=== PATIENT | female | born 1950 | race Caucasian/White ===

== ENCOUNTER 2018-08-08 15:25 | Emergency (ER) | payer MEDICARE, OTHER ==
--- OUTSIDE RECORDS SUMMARY | 2018-08-08 17:03 | XMS REPORT | Continuity of Care Document ---
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 Mabel Gallo MD Primary Care Physician Unavailable Payers Type Date Identification Numbers Payment Provider Subscriber Policy Number: [id number] Medicare Charley Sims PayID: [id number] [address] [place] [address] Policy Number: [id number] Lifetime Benefits Solutio Charley Sims PayID: [facility] [address] [address] [place] [address] Expires: 2016 Policy Number: [id number] [employer] Charley Sims PayID: [id number] [address] [place] [address] Advance Directives Description No Information Available Problems Description No Information Family History Date Family Member(s) Problem(s) Comments Father due to Heart Attack () Father due to Stroke () Mother due to Heart Attack () Mother Diabetes Mother due to Stroke () Social History Type Date Description Comments Sex Female Cigarette Use Quit 31 Years Ago ETOH Use Never used alcohol Recreational Drug Use Never Used Drugs Allergies, Adverse Reactions, Alerts Date Description Reaction Status Severity Comments 02/02/2010 Sulfa (Sulfonamide Antibiotics) Active Medications Medication Date Status Form Strength Qnty SIG Indications Ordering Provider Hydrocodone 07/06 Active Tablets 5-325mg 20tab one to two Ohara, Bitartrate/Acetami /2018 s tab every 6 Silver, nophen hours by M.D. mouth as needed Acetaminophen 0000 Active Tablets 500mg 2 tab every Unknown Extra Strength /0000 6 hours by mouth as needed - 10 days Hydroxychloroquine 0000 Active Tablets 200mg 1 by mouth Unknown Sulfate /0000 every day Omeprazole 00 Active Capsules 40mg 1 by mouth Unknown /0000 DR every day Lyrica 00 Active Capsules 300mg bid Unknown Simvastatin Active Tablets 10mg 1 by mouth Unknown every day Eliquis Active Tablets 5mg 1 tab by Unknown / mouth twice a day Spiriva Respimat Active Aerosol 1.25mcg/A take 2 ct puffs once daily. Duloxetine HCL Active Caps DR 30mg also takes Part 60mg tab Linzess Active Capsules 145mcg every day Unknown Bupropion HCL Active Tablets 75mg one tab Unknown daily for a month take in the morning Cyclobenzaprine Active Tablets 10mg 1 tab by Unknown / mouth three times a day as needed Folic Acid Active Tablets 1 by mouth every day Iron Active Tablets 240(27Fe) Unknown mg Augmentin 05/06 Hx Tablets 875-125mg 14tab twice a day Ohara, s 1 week Silver - M.D. 05/24 Ipratropium 03/10 Hx Solution 0.03% QS 2 sprays Ohara, each side Silver, - nostril M.D. 05/05 everyday months Zantac 06/09 Hx Tablets 150mg 30tab 1 By Mouth s Every Day Silver, - MDD 1 M.D. 05/05 Acetaminophen 03/01 Hx Tablets 500mg 14tab Every 6 Unknown Extra Strength /2014 s Hours as - Needed prn 05/05 Pain Or /2017 Temp. Over 100.4 Amitriptyline HCL 03/01 Hx Tablets 50mg 20tab AT Bedtime s - 05/05 Amoxicillin/Clavul 03/01 Hx Tablets 875-125mg 20tab 2 Times A Unknown anate Potassium /2014 s Day - 05/06 Astelin 03/01 Hx Solution 137mcg/Sp 14uni 2 Times A Unknown /2014 ray ts Day - 05/05 Citalopram 03/01 Hx Tablets 20mg 14tab Once Daily Unknown Hydrobromide s - 05/05 Ferrous Sulfate 03/01 Hx Tablets 325(65Fe) 20tab 2 Times A Unknown /2014 mg s Day - 05/05 Heparin Sodium 03/01 Hx Solution 5000Unit/ 20uni 2 Times A Unknown (Porcine) /2014 ML ts Day - 05/06 Hydroxychloroquine 03/01 Hx Tablets 200mg 14tab 2 Times A Unknown Sulfate /2014 s Day With - Meals 05/05 Lactinex 03/01 Hx Tablets 14tab 2 Times A Unknown Repack /2014 s Day - 05/06 Loratadine 03/01 Hx Tablets 10mg 14tab Once Daily Unknown s - 05/05 Pantoprazole 03/01 Hx Tablets 40mg 14tab 2 Times A Unknown Sodium /2014 DR gonzalez Day - 05/06 Pravastatin Sodium 03/01 Hx Tablets 10mg 14tab Qday@1700 s - 05/05 Lyrica 03/01 Hx Capsules 150mg 14cap 3 Times Unknown s Daily - 05/05 Sertraline HCL 03/01 Hx Tablets 25mg 14tab Once Daily s - 05/05 Sucralfate 03/01 Hx Tablets 1gm 14tab 0700,1100,1 s 500 - 05/05 Sucralfate 03/01 Hx Tablets 1gm 14tab 1900,2100 s - 05/06 Spiriva Handihaler 03/01 Hx Capsules 18mcg 30cap Once Daily s - 05/05 Ondansetron HCL 02/17 Hx Tablets 4mg 12tab 3 Times A Unknown s Day as - Needed prn 05/05 Nausea Calcium Citrate + 00 Hx Tablets 315-200mg Once Daily Unknown D /0000 -Unit - 05/05 Polyethylene 00/00 Hx Powder 3350NF 12uni Once Daily Unknown Glycol 3350 /0000 ts - 05/05 Acetaminophen 00/00 Hx Tablets 500mg Every 4 To Unknown Extra Strength /0000 6 HRS prn - Pain / 05/05 Fever Citalopram 0000 Hx Tablets 20mg Once Daily Unknown Hydrobromide /0000 - 05/05 Lovenox 00/00 Hx Solution 30mg/0.3M Once Daily Unknown /0000 L For - Anticoagula 05/05 nt Hydroxychloroquine 0000 Hx Tablets 200mg 2 Times A Unknown Sulfate / Day - 05/05 Ibuprofen 00/00 Hx Tablets 800mg 4 Times A Unknown /0000 Day prn - Pain 05/05 Omeprazole Hx Capsules 20mg 2 Times A Unknown /0000 DR Day - 05/05 Oxecta 00 Hx Taba 5mg Every 4 To Unknown /0000 6 HRS prn - Pain 05/06 Lyrica Hx Capsules 150mg 3 Times Unknown /0000 Daily For - Fibromyalgi 05/05 Simvastatin Hx Tablets 10mg Once Daily Unknown /0000 - 05/05 Eliquis Hx Tablets 5mg 1 tab by Unknown /0000 mouth twice - a day 05/05 Spiriva Respimat Hx Aerosol 1.25mcg/A take 2 Unknown /0000 ct puffs once - daily. 05/[address] Dulox[address] HCL Hx Caps [address] 30mg Unknown /0000 Part - 05/05 Duloxetine HCL Hx Caps DR 60mg take one Unknown /0000 Part capsule by - mouth 05/05 Ipratropium Hx Solution 0.03% 2 sprays Ohara, [place] /0000 each side Silver, - nostril M.D. 06/28 everyday months Azelastine HCL Hx Solution 137mcg/Sp 2 sprays Unknown (Nasal) /0000 ray each side - daily 06/28 Pravastatin Sodium Hx Tablets 1 by mouth Unknown /0000 every at - bedtime 06/28 Sertraline HCL Hx Tablets 25mg once a day Unknown /0000 - 06/28 Calcium Citrate + Hx Tablets 315-200mg Unknown D /0000 -Unit - 06/28 Proair HFA Hx Aerosol 108(90Bas 2puffs four Unknown /0000 e) times a day - mcg/Act as needed 06/28 for Immunizations Description No Information Available Vital Signs Date Vital Result Comment 07/13/2018 11:22am Weight 206.00 lb Height 63 inches 5'3" BMI (Body Mass Index) 36.5 kg/m2 BP Systolic 128 mmHg BP Diastolic 73 mmHg Heart Rate 81 /min O2 % BldC Oximetry 100 % Body Temperature 97.8 F Pain Level 2 05/25/2018 1:19pm Weight 208.00 lb Height 63 inches 5'3" BMI (Body Mass Index) 36.8 kg/m2 BP Systolic 114 mmHg BP Diastolic 79 mmHg Heart Rate 73 /min O2 % BldC Oximetry 98 % Body Temperature 97.7 F Pain Level 2 05/06/2018 12:58pm Weight 206.00 lb Height 63 inches 5'3" BMI (Body Mass Index) 36.5 kg/m2 BP Systolic 111 mmHg BP Diastolic 70 mmHg Heart Rate 73 /min O2 % BldC Oximetry 96 % Body Temperature 97.8 F Pain Level 0 04/21/2018 1:04pm Weight 206.00 lb Height 63 inches 5'3" BMI (Body Mass Index) 36.5 kg/m2 BP Systolic 123 mmHg BP Diastolic 70 mmHg Heart Rate 79 /min O2 % BldC Oximetry 99 % Body Temperature 97.0 F Pain Level 0 03/10/2018 1:46pm Weight 215.00 lb Height 63 inches 5'3" BMI (Body Mass Index) 38.1 kg/m2 BP Systolic 105 mmHg BP Diastolic 61 mmHg Heart Rate 80 /min O2 % BldC Oximetry 97 % Body Temperature 97.9 F Pain Level 0 09/09/2017 1:13pm Weight 225.12 lb Height 63 inches 5'3" BMI (Body Mass Index) 39.9 kg/m2 BP Systolic 123 mmHg BP Diastolic 74 mmHg Heart Rate 71 /min O2 % BldC Oximetry 97 % Body Temperature 97.0 F Pain Level 0 06/09/2017 10:27am Weight 223.50 lb Height 63 inches 5'3" BMI (Body Mass Index) 39.6 kg/m2 BP Systolic 99 mmHg BP Diastolic 62 mmHg Heart Rate 86 /min O2 % BldC Oximetry 98 % Body Temperature 98.7 F Pain Level 0 05/06/2017 11:39am Weight 222.50 lb Height 63 inches 5'3" BMI (Body Mass Index) 39.4 kg/m2 BP Systolic 107 mmHg BP Diastolic 63 mmHg Heart Rate 67 /min O2 % BldC Oximetry 96 % Body Temperature 97.7 F Pain Level 0 Results Test Date Facility Test Result H/L Range Note Laboratory test 06/02/2017 [facility] Surgical SEE RESULT [address] [address] Laboratory test 05/06/2017 [facility] Surgical SEE RESULT [address] [place] [address] 1 SEE RESULT BELOW Name: CHARLEY SIMS : [address]: Silver Ohara MD Acct: [id number] Unit: [id number] AGE: 66 Location: [facility] Re06/02/17 SEX: F Status: REG REF SPEC: [id number] ANGELIQUE: 06/02/[address]: Silver Ohara MD REQ: [id number] RECD: 06/02/17 STATUS: SOUT _ ORDERED: LEVEL 4 COMMENTS: [id number] FINAL DIAGNOSIS Skin, right side of nose, excision: -- Basal cell carcinoma, nodular pattern. -- Deep, tip and lateral margins of resection are clear. CLINICAL HISTORY No history given PRE-OPERATIVE DIAGNOSIS GROSS DESCRIPTION The specimen is received in formalin labeled, Basal Cell Carcinoma Right Side Nose, and consists of a 1.0 x 0.9 cm browne-white ovoid portion of skin excised to a maximum depth of 0.5 cm. The specimen is inked, serially sectioned and entirely submitted in one cassette. Signed (signature on file) Bo Lovett MD 1140 END OF REPORT * ML=Testing performed at Main Lab DEPARTMENT OF PATHOLOGY, [address] [place] [address] Bo Lovett M.D. Director [facility] # [id number] 2 SEE RESULT BELOW Name: CHARLEY SIMS : [address]: Silver Ohara MD Acct: [id number] Unit: [id number] AGE: 66 Location: [facility] Re05/06/17 SEX: F Status: REG REF SPEC: [id number] ANGELIQUE: 05/06/17-1147 [facility] [address]: Silver Ohara MD REQ: [id number] RECD: 05/06/175419 STATUS: SOUT _ ORDERED: LEVEL 4 COMMENTS: [id number] FINAL DIAGNOSIS Skin, right side of nose, biopsy: -- Basal cell carcinoma, superficial and nodular type. -- Lesional cells extend to the biopsy base and to at least one lateral specimen edge. CLINICAL HISTORY No history given GROSS DESCRIPTION The specimen is received in formalin labeled, Lesion on Right Side of Nose, and consists of a 0.4 x 0.1 x 0.1 cm aggregate of browne-white irregular skin fragments, which is filtered and entirely submitted in one cassette. Signed (signature on file) Jewell Beverly MD 1011 END OF REPORT * ML=Testing performed at Main Lab DEPARTMENT OF PATHOLOGY, [address] [place] [address] Bo Lovett M.D. Director [facility] # [id number] Procedures Date Code Description Status 07/06/2018 78324 Stereotactic Computer-Assisted, Cranial, Extradural Completed 07/06/2018 26991 Nasal/Sinus Endosc.W.Explor. Completed 07/06/2018 90463 Nasal/Sinus Endo Inc Sphenoido Completed 07/06/2018 85225 Nasal/Sinus Endosc.W.Max.Antrost. Completed 07/06/2018 93042 Submucous Resect.Turb.Par Or Comp Completed 07/06/2018 48469 Anesthesia, Nose & Accessory Sinus Surgery Not Otherwise Completed Spec 05/25/2018 12983 Cat Scan Maxillofacial W/O Contrast,computed tomography Completed 05/25/2018 15703 Cat Scan Maxillofacial W/O Contrast,computed tomography Completed 05/25/2018 86012 Cat Scan Maxillofacial W/O Contrast,computed tomography Completed 05/06/2018 71012 Cat Scan Maxillofacial W/O Contrast,computed tomography Completed 05/06/2018 43507 Cat Scan Maxillofacial W/O Contrast,computed tomography Completed 05/06/2018 20883 Cat Scan Maxillofacial W/O Contrast,computed tomography Completed 04/21/2018 22906 Nasal Endoscopy, Diag. Completed 03/10/2018 18051 Ultrasound Head/Neck Completed 03/10/2018 67163 Fiberoptic Laryngoscopy,Diag. Completed 06/02/2017 72135 Adjacent Tissue Transfer/Rearrangement, Eyelids,Nose Completed Ears/Lips 06/02/2017 23359 Anesthesia Head Neck Posterior Trunk Integumentary Unspec Completed 05/06/2017 61670 Fiberoptic Laryngoscopy,Diag. Completed 11/09/2008 66241 Acoustic Reflex Testing Completed 11/09/2008 43904 Tympanometry Completed 11/09/2008 32257 Audiometry, Comprehensive Completed Encounters Type Date Location Provider Dx Diagnosis Office Visit 05/25/2018 Main Office Silver Ohara M.D. J32.9 Chronic sinusitis, 1:15p unspecified J34.2 Deviated nasal septum Office Visit 05/06/2018 1:00p Main Office Silver Ohara J32.9 Chronic sinusitis, M.D. unspecified K21.9 Gastro-esophageal reflux disease without esophagitis Office Visit 04/21/2018 1:00p Main Office Silver Ohara K21.9 Gastro- esophageal reflux M.D. disease without esophagitis J32.9 Chronic sinusitis, unspecified J34.2 Deviated nasal septum J31.0 Chronic rhinitis Office Visit 03/10/2018 1:45p Main Office Silver Ohara K21.9 Gastro- esophageal reflux M.D. disease without esophagitis Z85.828 Personal history of other malignant neoplasm of skin R09.82 Postnasal drip E66.9 Obesity, unspecified K11.20 Sialoadenitis, unspecified Office Visit 09/09/2017 1:15p Main Office Silver Ohara K21.9 Gastro- esophageal reflux M.D. disease without esophagitis R23.8 Other skin changes Z85.828 Personal history of other malignant neoplasm of skin Office Visit 05/06/2017 11:15a Main Office Silver Ohara K21.9 Gastro- esophageal reflux M.D. disease without esophagitis K21.9 Gastro-esophageal reflux disease without esophagitis E66.9 Obesity, unspecified E66.9 Obesity, unspecified R23.8 Other skin changes R23.8 Other skin changes R13.10 Dysphagia, unspecified R13.10 Dysphagia, unspecified Plan of Treatment No Information Available
[2018-08-08 17:10] VITALS: BP 124/65
--- NOTE | 2018-08-08 17:41 | UC ---
Lower Extremity/Ankle HPI - HPI Summary HPI Summary: Pt presents with c/o left foot pain,swelling,bruising and decreased ROM after dropping heavy object on it today at ~ 1400. - History of Current Complaint Chief Complaint: UCLowerExtremity Stated Complaint: LEFT FOOT INJURY Time Seen by Provider: 08/08/18 17:08 Hx Obtained From: Patient ?: No Onset/Duration: Sudden Onset, Still Present Severity Initially: Moderate Severity Currently: Mild Pain Intensity: 6 Aggravating Factor(s): Standing, Ambulation Alleviating Factor(s): Rest, Elevation, Ice Able to Bear Weight: Yes - Risk Factors Gout Risk Factors: Age Over 40, Obesity DVT Risk Factors: Negative Septic Arthritis Risk Factor: Negative - Allergies/Home Medications Allergies/Adverse Reactions: Allergies Allergy/AdvReac Type Severity Reaction Status Date / Time ibuprofen Allergy See Comment Verified 08/08/18 17:23 oxycodone Allergy Vomiting Verified 08/08/18 17:23 Sulfa (Sulfonamide Allergy Rash Verified 08/08/18 17:23 Antibiotics) ENVIRONMENTAL/SEASONAL Allergy ITCHY Uncoded 08/08/18 17:23 HAYFEVER WATERY EYES, SNEEZE, FACIAL ACHE Home Medications: Home Medications Albuterol HFA INHALER* [Ventolin HFA Inhaler*] 2 puff INH Q4H PRN 08/08/18 [ History Confirmed 08/08/18] Apixaban* [Eliquis*] 5 mg PO DAILY 08/08/18 [History Confirmed 08/08/18] Cyclobenzaprine TAB* [Flexeril 10 MG TAB*] 10 mg PO DAILY 08/08/18 [History Confirmed 08/08/18] DULoxetine DR CAP* [Cymbalta CAP*] 90 mg PO ONCE 08/08/18 [History Confirmed ] Folic Acid TAB* [Folvite TAB*] 1 mg PO DAILY 08/08/18 [History Confirmed ] Multivitamin [Multivitamins] 1 each PO DAILY 08/08/18 [History Confirmed ] Spiriva Inhaler DEVICE* [Tiotropium Inhaler DEVICE*] 2 inh DAILY 08/08/18 [ History Confirmed 08/08/18] buPROPion TAB* [Wellbutrin TAB*] 75 mg PO DAILY 08/08/18 [History Confirmed ] predniSONE TAB* [Deltasone TAB*] 5 mg PO DAILY 08/08/18 [History Confirmed 08/08] PMH/Surg Hx/FS Hx/Imm Hx Previously Healthy: Yes - Surgical History Surgical History: Yes Surgery Procedure, Year, and Place: BILAT CATARACT [facility]. TONSILLECTOMY CHILD. rt ankle 02/2015, [facility] - Family History Known Family History: Positive: Cardiac Disease - Social History Occupation: Retired Lives: With Family Alcohol Use: None Substance Use Type: None Smoking Status (MU): Former Smoker Type: Cigarettes Amount Used/How Often: 1 PPD Length of Time of Smoking/Using Tobacco: ON AND OFF FOR ABOUT 10 YEARS Have You Smoked in the Last Year: No When Did the Patient Quit Smoking/Using Tobacco: 1986 - Immunization History Most Recent Influenza Vaccination: 2013 Most Recent Tetanus Shot: unknown Most Recent Pneumonia Vaccination: never Review of Systems All Other Systems Reviewed And Are Negative: Yes Constitutional: Positive: Negative Skin: Positive: Bruising Eyes: Positive: Negative ENT: Positive: Negative Respiratory: Positive: Negative Cardiovascular: Positive: Negative Gastrointestinal: Positive: Negative Genitourinary: Positive: Negative Motor: Positive: Decreased ROM - left foot/toes Neurovascular: Positive: Negative Musculoskeletal: Positive: Decreased ROM, Edema, Myalgia Neurological: Positive: Negative Psychological: Positive: Negative Is Patient Immunocompromised?: No Physical Exam Triage Information Reviewed: Yes Appearance: Well-Appearing Vital Signs: Initial Vital Signs Temp 98.0 F 08/08/18 17:06 Pulse 63 08/08/18 17:06 Resp 16 08/08/18 17:06 BP 124/65 08/08/18 17:06 Pulse Ox 100 08/08/18 17:06 Vital Signs Reviewed: Yes Eye Exam: Normal ENT Exam: Normal Dental Exam: Normal Neck exam: Normal Respiratory: Positive: No respiratory distress Musculoskeletal: Positive: Strength Limited @ - left foot and toes, distal, ROM Limited @, Edema @ Neurological Exam: Normal Psychological Exam: Normal Skin Exam: Other - left foot bruising. Diagnostics - Radiology No standard instances Radiology Interpretation Completed By: Radiologist - IMPRESSION: THERE IS NO RADIOGRAPHICALLY APPARENT ACUTE FRACTURE OR DISLOCATION OF THE LEFT FOOT. Lower Extremity Course/Dx - Differential Dx/Diagnosis Differential Diagnosis/HQI/PQRI: Contusion, Fracture (Closed) Provider Diagnosis: Contusion of left foot including toes Discharge - Sign-Out/Discharge Documenting (check all that apply): Patient Departure All imaging exams completed and their final reports reviewed: Yes - Discharge Plan Condition: Stable Disposition: HOME Patient Education Materials: Foot Contusion (ED), R.I.C.E. Treatment (ED) Referrals: John Salamanca MD [Medical Doctor] - If Needed Mabel Gallo MD [Primary Care Provider] - If Needed - Billing Disposition and Condition Condition: STABLE Disposition: Home - Attestation Statements Provider Attestation: Per institutional requirements, I have reviewed the chart, however, I was not consulted specifically or made aware of this patient by the midlevel provider. I did not personally evaluate, interact with , or disposition this patient
== END 2018-08-08 18:19 | disposition home or self-care (01) ==
LOC: UCCORT 15:25
DX: S90.32XA Contusion of left foot, initial encounter (principal); S90.122A Contusion of left lesser toe(s) without damage to nail, initial encounter; W20.8XXA Other cause of strike by thrown, projected or falling object, initial encounter; Y92.9 Unspecified place or not applicable; Z88.6 Allergy status to analgesic agent; Z88.5 Allergy status to narcotic agent; Z88.2 Allergy status to sulfonamides; Z87.891 Personal history of nicotine dependence
CPT/HCPCS: 99213; G0463

== ENCOUNTER 2019-01-25 17:38 | Observation (INO) | payer MEDICARE, OTHER ==
[2019-01-25] MEDS ORDERED: Ondansetron INJ* 2 MG/ML VIAL IV ONE (18:13)
[2019-01-25] MEDS ORDERED: Pantoprazole* 80 mg IN NS 80 MG/250 ML BAG IV ONE (18:13)
[2019-01-25] MEDS ORDERED: Lidocaine 2% VISCOUS* 15 ML UDC PO ONE (18:13)
--- NOTE | 2019-01-25 18:18 | ED ---
GI/ HPI - HPI Summary HPI Summary: The patient is a 68 year old F transferred from [facility] to [facility] for a GI Bleed. She stated that she has been nauseous since 01/23/19 and has been vomiting today. Pt denies any fever, chills, erythema of eyes, sore throat, CP, SOB, cough, dysuria, hematuria, diarrhea, myalgia, edema, rash, or dizziness. She has abdominal pain and a headache. She has a Hx of GI bleeds which were resolved in [place] and in [place]. 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 She has only vomited once today. The last time she took Eloquis was on 01/22/19 due to her nausea and vomiting. She states that her headache is intense and is located at her occipital region and extends down her neck. She had a CAT scan w/ IV contrast that was negative for a GI bleed from [facility]. Her Hemoglobin test showed a 9.3. Symptoms aggravated by consumption of food and fluids, symptoms alleviated by nothing. - History of Current Complaint Chief Complaint: EDGIBleed Time Seen by Provider: 01/25/19 18:01 Stated Complaint: GI BLEED PER EMS Hx Obtained From: Patient, Medical Records - [facility] Onset/Duration: Started Days Ago - 01/22/19, Still Present, Worse Since Timing: Constant Severity: Moderate Current Severity: Severe Pain Intensity: 0 Location of Pain: Diffuse Associated Signs and Symptoms: Positive: Negative - denies any fever, chills, erythema of eyes, sore throat, CP, SOB, cough, dysuria, hematuria, diarrhea, myalgia, edema, rash, or dizziness, Nausea, Vomiting, Abdominal Pain, Other: - Headache Aggravating Factor(s): Food, Liquids Alleviating Factor(s): Nothing - Allergy/Home Medications Allergies/Adverse Reactions: Allergies Allergy/AdvReac Type Severity Reaction Status Date / Time ibuprofen Allergy See Comment Verified 01/25/19 18:03 oxycodone Allergy Vomiting Verified 01/25/19 18:03 Sulfa (Sulfonamide Allergy Rash Verified 01/25/19 18:03 Antibiotics) ENVIRONMENTAL/SEASONAL Allergy ITCHY Uncoded 01/25/19 18:03 HAYFEVER WATERY EYES, SNEEZE, FACIAL ACHE Home Medications: Home Medications Acetaminophen [Arthritis Pain Relief] 1,300 mg PO Q8HR PRN 01/25/19 [History Confirmed 01/25/19] Cyanocobalamin/Folic AC/Vit B6 [Folbee] 1 tab PO DAILY 01/25/19 [History Confirmed 01/25/19] Fluticasone NASAL SPRAY 50MCG* [Flonase NASAL SPRAY 50MCG*] 1 spray BOTH NARES BID 01/25/19 [History Confirmed 01/25/19] Pregabalin CAP(*) [Lyrica CAP(*)] 300 mg PO DAILY 01/25/19 [History Confirmed ] PMH/Surg Hx/FS Hx/Imm Hx Previously Healthy: No Endocrine/Hematology History: Reports: Hx Anemia - HX OF Cardiovascular History: Reports: Hx Peripheral Vascular Disease - BILATERAL VARICOSE VEINS GI History: Reports: Hx Gastroesophageal Reflux Disease - CONTROL WITH MEDS, Hx Hiatal Hernia, Other GI Disorders - HX OF CHRONIC CONSTIPATION, NO PROBLEMS NOW Musculoskeletal History: Reports: Hx Arthritis - BACK Sensory History: Reports: Hx Contacts or Glasses - READING GLASSES, Hx Hearing Aid - BILATERAL Opthamlomology History: Reports: Hx Contacts or Glasses - READING GLASSES Neurological History: Reports: Other Neuro Impairments/Disorders - LUPUS, FIBROMYALGIA Psychiatric History: Reports: Hx Depression - CONTROL WITH MEDS - Cancer History Hx Chemotherapy: No - Surgical History Surgery Procedure, Year, and Place: BILAT CATARACT [facility]. TONSILLECTOMY CHILD. rt ankle 02/2015, [facility] Hx Anesthesia Reactions: No - Immunization History Immunizations Up to Date: Yes Infectious Disease History: No Infectious Disease History: Denies: Traveled Outside the [place] in Last 30 Days - Family History Known Family History: Positive: Cardiac Disease - Social History Alcohol Use: None Substance Use Type: Reports: None Smoking Status (MU): Former Smoker Type: Cigarettes Amount Used/How Often: 1 PPD Length of Time of Smoking/Using Tobacco: ON AND OFF FOR ABOUT 10 YEARS Have You Smoked in the Last Year: No Review of Systems Negative: Fever, Chills Negative: Erythema Negative: Sore Throat Negative: Chest Pain Negative: Shortness Of Breath, Cough Positive: Abdominal Pain, Vomiting, Nausea. Negative: Diarrhea Negative: dysuria, hematuria Negative: Myalgia, Edema Negative: Rash Neurological: Negative - Dizziness Positive: Headache All Other Systems Reviewed And Are Negative: Yes Physical Exam - Summary Physical Exam Summary: Constitutional: Well-developed, Well-nourished, Alert. (-) Distressed Skin: Warm, Dry HENT: Normocephalic; Atraumatic Eyes: Conjunctiva normal Neck: Musculoskeletal ROM normal neck. (-) JVD, (-) Stridor, (-) Tracheal deviation Cardio: Rhythm regular, rate normal, Heart sounds normal; Intact distal pulses; The pedal pulses are 2+ and symmetric. Radial pulses are 2+ and symmetric. (-) Murmur Pulmonary/Chest wall: Effort normal. (-) Respiratory distress, (-) Wheezes, (-) Rales Abd: Soft, Epigastric tenderness, (-) Distension, (-) Guarding, (-) Rebound Musculoskeletal: (-) Edema Lymph: (-) Cervical adenopathy Neuro: Alert, Oriented x3 Psych: Mood and affect Normal Triage Information Reviewed: Yes Vital Signs On Initial Exam: Initial Vitals Temp Pulse Resp BP Pulse Ox 98.8 F 68 16 159/89 98 01/25/19 17:50 01/25/19 17:50 01/25/19 17:50 01/25/19 17:50 01/25/19 17:50 Vital Signs Reviewed: Yes Diagnostics - Vital Signs Vital Signs Temp Pulse Resp BP Pulse Ox 01/25/19 18:00 71 98 01/25/19 17:51 73 164/65 95 01/25/19 17:50 98.8 F 68 16 159/89 98 - Laboratory Result Diagrams: 01/25/19 18:29 Lab Statement: Any lab studies that have been ordered have been reviewed, and results considered in the medical decision making process. GIGU Course/Dx - Course Course Of Treatment: he patient is a 68 year old F transferred from [facility] to [facility] for a GI Bleed. She stated that she has been nauseous since 01/23/19 and has been vomiting today. Pt denies any fever, chills , erythema of eyes, sore throat, CP, SOB, cough, dysuria, hematuria, diarrhea, myalgia, edema, rash, or dizziness. She has abdominal pain and a headache. She has a Hx of GI bleeds which were resolved in [place] and in [place]. 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 Her PE showed that she had epigastric tenderness. Her case was discussed with Vaughn Singh , who agreeded to admit the pt to the telemetry floor as the pt's condition does not warant the ICU. She is stable and has had no significant blood loss since her hemoglobin level is baseline of 10. She will be addmitted to [facility] after consulting with Dr. Cooper with a dx of upper GI bleed and Gastroenteritis. - Diagnoses Provider Diagnoses: Gastroenteritis, Upper GI bleed Discharge - Sign-Out/Discharge Documenting (check all that apply): Patient Departure - admitted Patient Received Moderate/Deep Sedation with Procedure: No - Discharge Plan Condition: Stable Disposition: ADMITTED TO [facility] Referrals: Mabel Gallo MD [Primary Care Provider] - - Attestation Statements Document Initiated by Scribe: Yes Documenting Scribe: Ruslan Dolan Provider For Whom Scribe is Documenting (Include Credential): Marcello Tierney MD Scribe Attestation: Rsulan Ferro, scribed for Marcello Tierney MD on 01/25/19 at 1838. Status of Scribe Document: Ready
--- OUTSIDE RECORDS SUMMARY | 2019-01-25 18:29 | XMS REPORT | Continuity of Care Document ---
:1950 External Reference #:[id number] Author Name Mally Fisher Care Team Providers Name Role Phone Mabel Gallo MD Care Team Information Chemical Dependency Counselor Unavailable Mabel Gallo MD Primary Care Physician Unavailable Payers Date Identification Numbers Payment Provider Subscriber Policy Number: [id number] Medicare Charley Sims PayID: [id number] [address] [place] [address] Policy Number: [id number] Lifetime Benefits Solutio Charley Sims PayID: [id number] [address] [address] [place] [address] Expires: 2016 Policy Number: [id number] [employer] Charley Sims PayID: [employer] [address] [place] [address] Family History Date Family Member(s) Observation Comments Father due to Heart Attack () Father due to Stroke () Mother due to Heart Attack () Mother Diabetes Mother due to Stroke () Social History Type Date Description Comments Sex Female Cigarette Use Quit 31 Years Ago ETOH Use Never used alcohol Recreational Drug Use Never Used Drugs Allergies, Adverse Reactions, Alerts Active Allergies Reaction Severity Comments Date Sulfa (Sulfonamide Antibiotics) 02/02/2010 Medications Active Medications SIG Qnty Indications Ordering Date Provider Hydrocodone one to two tab 20tabs Silver Ohara, 07/06/2018 Bitartrate/Acetaminophen every 6 hours M.D. 5-325mg by mouth as Tablets needed Heart Medication Unknown Prednisone 2 by mouth Unknown 2.5mg Tablets every day for 1 week, then 1 by mouth for 1 week Iron Unknown 240(27Fe) mg Tablets Folic Acid 1 by mouth Unknown Tablets every day Cyclobenzaprine HCL 1 tab by mouth Unknown 10mg Tablets three times a day as needed Bupropion HCL one tab daily Unknown 75mg Tablets for a month take in the morning Linzess every day Unknown 145mcg Capsules Duloxetine HCL also takes Unknown 30mg Caps DR Part 60mg tab Spiriva Respimat take 2 puffs Unknown 1.25mcg/Act once daily. Aerosol Eliquis 1 tab by mouth Unknown 5mg Tablets twice a day Simvastatin 1 by mouth Unknown 10mg Tablets every day Lyrica Unknown 300mg bid Capsules Omeprazole 1 by mouth Unknown 40mg Capsules DR every day Hydroxychloroquine Sulfate 1 by mouth Unknown 200mg every day Tablets Acetaminophen Extra 2 tab every 6 Unknown Strength hours by mouth 500mg Tablets as needed - 10 days History Medications Augmentin twice a day 1 week 14tabs Silver Ohara, 05/06/2018 - 875-125mg Tablets M.D. 05/24/2018 Ipratropium Ryegate 2 sprays each side QS Silver Ohara, 03/10/2018 - 0.03% nostril everyday 2 M.D. 05/05/2018 Solution months Zantac 1 By Mouth Every Day 30tabs Silver Ohara, 06/09/2017 - 150mg Tablets MDD 1 M.D. 05/05/2018 Spiriva Handihaler Once Daily 30caps Unknown 03/01/2015 - 18mcg 05/05/2018 Capsules Sucralfate 1900,2100 14tabs Unknown 03/01/2015 - 1gm Tablets 05/06/2017 Sucralfate 0700,1100,1500 14tabs Unknown 03/01/2015 - 1gm Tablets 05/05/2018 Sertraline HCL Once Daily 14tabs Unknown 03/01/2015 - 25mg Tablets 05/05/2018 Lyrica 3 Times Daily 14caps Unknown 03/01/2015 - 150mg Capsules 05/05/2018 Pravastatin Sodium Qday@1700 14tabs Unknown 03/01/2015 - 10mg Tablets 05/05/2018 Pantoprazole Sodium 2 Times A Day 14tabs Unknown 03/01/2015 - 40mg 05/06/[address] Loratadine Once Daily 14tabs Unknown 03/01/2015 - 10mg Tablets 05/05/2018 Lactinex 2 Times A Day 14tabs Unknown 03/01/2015 - Repack 05/06/2017 Tablets Hydroxychloroquine 2 Times A Day With 14tabs Unknown 03/01/2015 - Sulfate Meals 05/05/2018 200mg Tablets Heparin Sodium (Porcine) 2 Times A Day 20units Unknown 03/01/2015 - 05/06/2017 5000Unit/ML Solution Ferrous Sulfate 2 Times A Day 20tabs Unknown 03/01/2015 - 325(65Fe) mg 05/05/2018 Tablets Citalopram Hydrobromide Once Daily 14tabs Unknown 03/01/2015 - 20mg 05/05/2018 Tablets Astelin 2 Times A Day 14units Unknown 03/01/2015 - 137mcg/Eunice Solution 05/05/2018 Amoxicillin/Clavulanate 2 Times A Day 20tabs Unknown 03/01/2015 - Potassium 05/06/2017 875-125mg Tablets Amitriptyline HCL AT Bedtime 20tabs Unknown 03/01/2015 - 50mg Tablets 05/05/2018 Acetaminophen Extra Every 6 Hours as 14tabs Unknown 03/01/2015 - Strength Needed prn Pain Or 05/05/2018 500mg Tablets Temp. Over 100.4 Ondansetron HCL 3 Times A Day as 12tabs Unknown 02/17/2015 - 4mg Tablets Needed prn Nausea 05/05/2018 Eliquis 1 tab by mouth twice Unknown - 5mg Tablets a day 05/05/2018 Spiriva Respimat take 2 puffs once Unknown - 1.25mcg/Act daily. 05/05/2018 Aerosol Duloxetine HCL Unknown - 30mg Caps DR 05/05/2018 Part Duloxetine HCL take one capsule by Unknown - 60mg Caps DR mouth 05/05/2018 Part Ipratropium Ryegate 2 sprays each side Silver Ohara, - 0.03% nostril everyday 2 M.D. 06/28/2018 Solution months Azelastine HCL (Nasal) 2 sprays each side Unknown - daily 06/28/2018 137mcg/Eunice Solution Pravastatin Sodium 1 by mouth every at Unknown - Tablets bedtime 06/28/2018 Sertraline HCL once a day Unknown - 25mg Tablets 06/28/2018 Calcium Citrate + D Unknown - 06/28/2018 [id number] Tablets Proair HFA 2puffs four times a Unknown - 108(90Base) mcg/Act day as needed for 06/28/2018 Aerosol sob Simvastatin Once Daily Unknown - 10mg Tablets 05/05/2018 Lyrica 3 Times Daily For Unknown - 150mg Capsules Fibromyalgia 05/05/2018 Oxecta Every 4 To 6 HRS prn Unknown - 5mg Taba Pain 05/06/2017 Omeprazole 2 Times A Day Unknown - 20mg Capsules DR 05/05/2018 Ibuprofen 4 Times A Day prn Unknown - 800mg Tablets Pain 05/05/2018 Hydroxychloroquine 2 Times A Day Unknown - Sulfate 05/05/2018 200mg Tablets Lovenox Once Daily For Unknown - 30mg/0.3ML Solution Anticoagulant 05/05/2018 Citalopram Hydrobromide Once Daily Unknown - 20mg 05/05/2018 Tablets Acetaminophen Extra Every 4 To 6 HRS prn Unknown - Strength Pain / Fever 05/05/2018 500mg Tablets Polyethylene Glycol 3350 Once Daily 12units Unknown - 3350NF 05/05/2018 Powder Calcium Citrate + D Once Daily Unknown - 05/05/2018 [id number] Tablets Vital Signs Date Vital Result Comment 01/10/2019 2:35pm Weight 201.00 lb Height 63 inches 5'3" BMI (Body Mass Index) 35.6 kg/m2 BP Systolic 113 mmHg BP Diastolic 68 mmHg Heart Rate 78 /min O2 % BldC Oximetry 99 % Body Temperature 97.0 F Pain Level 0 10/12/2018 10:45am Weight 206.00 lb Height 63 inches 5'3" BMI (Body Mass Index) 36.5 kg/m2 BP Systolic 124 mmHg BP Diastolic 74 mmHg Heart Rate 72 /min O2 % BldC Oximetry 99 % Body Temperature 97.6 F Pain Level 3 07/13/2018 11:22am Weight 206.00 lb Height 63 [...] Result H/L Range Note Laboratory test 06/02/2017 [facility] SEE RESULT [address] [place] [address] [phone] Laboratory test 05/06/2017 [facility] Surgical SEE RESULT [address] [place] [address] [phone] 1 SEE RESULT BELOW Name: LAPIDARY APPRENTICECHARLEY : [address]: Silver Ohara MD Acct: [id number] Unit: [id number] AGE: 66 Location: [facility] Re06/02/17 SEX: F Status: REG REF SPEC: [id number] ANGELIQUE: 06/02/17-1214 [facility] DR: Silver Ohara MD REQ: [id number] RECD: 06/02/17 STATUS: SOUT _ ORDERED: LEVEL 4 COMMENTS: [id number] FINAL DIAGNOSIS Skin, right side of nose, [...] performed at Main Lab DEPARTMENT OF PATHOLOGY, [address] [place] [address] Bo Lovett M.D. Director [facility] # [id number] 2 SEE RESULT BELOW Name: CHARLEY SIMS : [address]: Silver Ohara MD Acct: [id number] Unit: [id number] AGE: 66 Location: [facility] Re05/06/17 SEX: F Status: REG REF SPEC: [id number] ANGELIQUE: 05/06/17-[address]: Silver Ohara MD REQ: [id number] RECD: 05/06/173718 STATUS: SOUT _ ORDERED: LEVEL 4 COMMENTS: [id number] FINAL DIAGNOSIS Skin, right side of nose, [...] performed at Main Lab DEPARTMENT OF PATHOLOGY, [address] [place] [address] Bo Lovett M.D. Director [facility] # [id number] Procedures Date Code Description Status 07/06/2018 96650 Stereotactic Computer-Assisted, Cranial, Extradural Completed 07/06/2018 97790 Nasal/Sinus Endosc.W.Explor. Completed 07/06/2018 19745 Nasal/Sinus Endo Inc Sphenoido Completed 07/06/2018 73947 Nasal/Sinus Endosc.W.Max.Antrost. Completed 07/06/2018 71917 Submucous Resect.Turb.Par Or Comp Completed 07/06/2018 94881 Anesthesia, Nose & Accessory Sinus Surgery Not Otherwise Completed Spec 05/25/2018 85839 Cat Scan Maxillofacial W/O Contrast,computed tomography Completed 05/25/2018 48640 Cat Scan Maxillofacial W/O Contrast,computed tomography Completed 05/25/2018 04317 Cat Scan Maxillofacial W/O Contrast,computed tomography Completed 05/06/2018 58904 Cat Scan Maxillofacial W/O Contrast,computed tomography Completed 05/06/2018 63020 Cat Scan Maxillofacial W/O Contrast,computed tomography Completed 05/06/2018 20044 Cat Scan Maxillofacial W/O Contrast,computed tomography Completed 04/21/2018 69867 Nasal Endoscopy, Diag. Completed 03/10/2018 86362 Ultrasound Head/Neck Completed 03/10/2018 22256 Fiberoptic Laryngoscopy,Diag. Completed 06/02/2017 77727 Adjacent Tissue Transfer/Rearrangement, Eyelids,Nose Completed Ears/Lips 06/02/2017 39526 Anesthesia Head Neck Posterior Trunk Integumentary Unspec Completed 05/06/2017 45772 Fiberoptic Laryngoscopy,Diag. 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 unspecified J34.2 Deviated nasal septum Office Visit [...] Office Visit 05/06/2017 11:15a Main Office Silver Ohara, K21.9 Gastro- esophageal reflux M.D. disease without esophagitis K21.9 Gastro-esophageal reflux disease without esophagitis E66.9 Obesity, unspecified E66.9 Obesity, unspecified R23.8 Other skin changes R23.8 Other skin changes R13.10 Dysphagia, unspecified R13.10 Dysphagia, unspecified Plan of Treatment Future Appointment(s):04/14/2019 10:30 am - Alicja Xie NP at Main Office
[2019-01-25 18:35] LABS: ABS Basophils 0.1 10^3/ul (0-0.2); ABS Eosinophils 0.3 10^3/ul (0-0.6); ABS Monocytes 0.7 10^3/ul (0-0.8); ABS Neutrophils 3.8 10^3/ul (1.5-7.7); Eosinophil % 3.9 %; Hematocrit 29 % (35-47); Hemoglobin 9.2 g/dL (12.0-16.0); Lymphocyte % 29.4 %; Mean Corpuscular HGB Conc 31 g/dL (31-36); Mean Corpuscular Hemoglobin 25 pg (27-31); Mean Corpuscular Volume 80 fL (80-97); Mean Platelet Volume 8.3 fL (7.4-10.4); Platelet Count 321 10^3/uL (150-450); Red Blood Count 3.65 10^6 /uL (3.70-4.87); Red Cell Distribution Width 20 % (10-15); White Blood Count 6.8 10^3/uL (3.5-10.8)
[2019-01-25 18:43] LABS: INR 1.09 (0.82-1.09)
[2019-01-25 18:52] LABS: Albumin 3.7 g/dL (3.2-5.2); Albumin/Globulin Ratio 1.6 (1-3); BUN/Creatinine Ratio 12.8 (8-20); C Reactive Protein 4.52 mg/L (<8.01); Calcium 8.7 mg/dL (8.6-10.3); EGFR African American 78.9 (>60); EGFR Non-African American 65.2 (>60); Globulin 2.3 g/dL (2-4); Potassium 3.8 mmol/L (3.5-5.0); Total Bilirubin 0.3 mg/dL (0.2-1.0)
[2019-01-25] MEDS: Acetaminophen TAB* 325 MG PO PRN (21:26)
[2019-01-25] MEDS: Hydroxychloroquine TAB* 200 MG PO SCH (21:59)
[2019-01-25] MEDS: buPROPion TAB* 75 MG PO SCH (21:59)
[2019-01-25] MEDS: NS 0.9% 1000 ML** 1,000 ML IV SCH (22:03)
[2019-01-25] MEDS: Fluticasone NASAL SPRAY 50MCG* 16 gm SPRAY BTL BOTH NARES SCH (22:03)
--- NOTE | 2019-01-25 23:15 | HP ---
CC: Dr. Cooper; Dr. Gallo.* HISTORY AND PHYSICAL: DATE OF ADMISSION: 01/25/19 PRIMARY CARE PROVIDER: Dr. Gallo. ATTENDING PHYSICIAN WHILE IN THE HOSPITAL: Dr. Olga Lidia Castillo* (dictated by Radha Lam NP). CHIEF COMPLAINT: 1. Nausea, vomiting. 2. Guaiac positive stool. HISTORY OF PRESENT ILLNESS: Ms. Mcqueen is 68-year-old female with past medical history significant for GI bleed with AVMs, status post 3 cauterizations; atrial fibrillation, on Eliquis; DVTs and PE; lupus; and acid reflux, who initially presented to [place] [facility] with complaints of nausea and vomiting. Vomiting that started today, nausea since Thursday and decreased appetite. While in [place] [facility], she had routine blood work and a stool that was guaiac positive for blood. Due to [place] not having GI service available, the patient was transferred to [facility] for further evaluation and GI consultation. While in the emergency room, she had routine lab work drawn again. Her H and H at [place] was 9.3 and 30, repeat here at [facility] was 9.2 and 29. Due to her positive guaiac and concern for GI bleeding, we were asked to see and evaluate the patient for admission. PAST MEDICAL HISTORY: 1. Significant for GI bleed with AVM, status post AVM cauterization x3. 2. Atrial fibrillation. 3. History of DVTs and PEs, on chronic Eliquis. 4. Lupus. 5. GERD. PAST SURGICAL HISTORY: Right foot surgery, cataracts removed, tonsillectomy and basal cell carcinoma removed from her nose. HOME MEDICATIONS: Include: 1. Eliquis 5 mg p.o. b.i.d. 2. Folbee 1 tab p.o. daily. 3. Lyrica 300 mg p.o. daily. 4. Omeprazole 40 mg p.o. b.i.d. 5. Plaquenil 200 mg p.o. b.i.d. 6. Fluticasone 1 spray to both nares b.i.d. 7. Flexeril 10 mg p.o. at bedtime 8. Bupropion 75 mg p.o. at bedtime. 9. Acetaminophen 1300 mg p.o. q.8 hours as needed for pain. ALLERGIES: Allergy to OXYCODONE, IBUPROFEN and SULFA, and seasonal allergies as well. FAMILY HISTORY: Father with a stroke and an MO. Mother with stroke and hypertension. Mother with diabetes. No reported history of cancer. SOCIAL HISTORY: The patient reports that she quit smoking in 1985. Prior to that she smoked on and off for approximately 10 years. No alcohol or illicit drug use. She is . She lives alone. Surrogate decision maker in the event she is unable to make her own decisions is her daughter, Lanny. She is a full code. REVIEW OF SYSTEMS: She denies any fever or unintended weight loss. She denies any chest pain or edema, cough or hemoptysis. She does report chronic shortness of breath, no change from her baseline. She does report, nausea, vomiting, and generalized abdominal pain. She also reports loose stools on Thursday. She does report that she vomited clear brown vomit today. Denies any hematuria or dysuria. Denies any focal weakness or sensory loss. No visual complaints, dysphagia, arthralgias, myalgias, rashes, lesions or open sores. Denies any psychosis or anxiety. PHYSICAL EXAMINATION GENERAL: At this time, Ms. Mcqueen is a 68-year-old female. She is resting comfortably on a stretcher in the emergency room. She is in no acute distress. VITAL SIGNS: Blood pressure 133/56, temperature was 98.0, heart rate 72, respirations 18, O2 saturation 94%. HEENT: Head is atraumatic, normocephalic. Eyes: EOMs are intact. Sclerae anicteric, not pale. Oral mucosa appeared to be moist. NECK: Supple. LUNGS: Clear to auscultation bilaterally. No wheezes, rales or rhonchi. HEART: S1, S2. Regular rate and rhythm. No murmurs, rubs or gallops. ABDOMEN: She does have epigastric tenderness with palpation. Bowel sounds are present x4. She does have mild lower abdominal pain as well. MUSCULOSKELETAL: She is able to move all 4 extremities. There is no clubbing or cyanosis. Pedal pluses are +2 bilaterally. Skin is intact. NEUROLOGIC: She is awake, alert and oriented x3. Speech is clear. Thought process is intact. There are no gross focal deficits. DIAGNOSTIC STUDIES/LAB DATA: WBCs were 6.8, RBCs 3.65, hemoglobin was 9.2, hematocrit was 29, platelet count 321, INR was 1.009. Sodium 138, potassium 3.8 , chloride 108, carbon dioxide was 24, anion gap was 6, BUN was 11, creatinine 0.86, glucose is 89, lactic acid 0.9, lipase is 10. She did have a CT of the abdomen and pelvis at [place] that showed fatty infiltration of the liver. No diverticulitis or acute findings in the abdomen. ASSESSMENT AND PLAN: Ms. Mcqueen is a 68-year-old female with a past medical history significant for gastrointestinal bleed; atrial fibrillation; deep vein thrombosis and pulmonary embolisms, on chronic Eliquis; lupus; and acid reflux, who presented as a transfer from [place] [facility] with suspected gastrointestinal bleed and she will be admitted under observation for: 1. Gastrointestinal bleeding. The patient did have a positive guaiac stool. She does report she has not taken Eliquis since Thursday. We will continue to hold her Eliquis. I will place her on Protonix drip overnight. She can have clear liquids this evening and then be n.p.o. after midnight. I have consulted Dr. Cooper from GI, who will see the patient in consultation and possible upper endoscopy tomorrow. I will also place her on normal saline at 100 cc per hour, repeat H and H at midnight and repeat CBC, BMP at 6 a.m. 2 . Gastroesophageal reflux disease. At this time, she is currently on Protonix drip. We will continue with that at this time. 3. History of atrial fibrillation. The patient does take Eliquis at home. She is not on an antiarrhythmic. I am going to hold her Eliquis at this time. She has not taken Eliquis since Thursday. We will place her on telemetry and continue to monitor her. 4. Lupus. The patient can continue her Plaquenil as previously prescribed. 5. DVT prophylaxis. I will hold on chemical DVT prophylaxis at this time as the patient does have a possible GI bleed. I will place her on SCDs. 6. Diet. She can have clear liquids and be n.p.o. after midnight for possible upper endoscopy tomorrow morning. 7. Code status. She is a full code. TIME SPENT: Time spent on this admission was approximately 60 minutes, greater than half the time was spent at the bedside reviewing events leading thus far to her hospitalization, performing physical exam and reviewing my plan of care. I have discussed this with my attending, Dr. Olga Lidia Castillo, she is in agreement with my plan. RADHA LAM, ALEXA [id number]/CPS #: [id number] JESSICA
[2019-01-26 01:32] LABS: Hematocrit 29 % (35-47); Hemoglobin 9.3 g/dL (12.0-16.0)
[2019-01-26] MEDS: Ondansetron INJ* 2 MG/ML VIAL IV PRN ×3 (01:38→17:21)
[2019-01-26] MEDS: Acetaminophen TAB* 325 MG PO PRN (01:43)
[2019-01-26 06:27] LABS: ABS Basophils 0.1 10^3/ul (0-0.2); ABS Eosinophils 0.2 10^3/ul (0-0.6); ABS Lymphocytes 1.8 10^3/ul (1.0-4.8); ABS Monocytes 0.5 10^3/ul (0-0.8); ABS Neutrophils 4.3 10^3/ul (1.5-7.7); Hematocrit 30 % (35-47); Hemoglobin 9.8 g/dL (12.0-16.0); Lymphocyte % 25.5 %; Mean Corpuscular HGB Conc 33 g/dL (31-36); Mean Corpuscular Hemoglobin 26 pg (27-31); Mean Corpuscular Volume 78 fL (80-97); Mean Platelet Volume 8.3 fL (7.4-10.4); Platelet Count 344 10^3/uL (150-450); Red Blood Count 3.83 10^6 /uL (3.70-4.87); Red Cell Distribution Width 20 % (10-15); White Blood Count 6.9 10^3/uL (3.5-10.8)
[2019-01-26 06:45] LABS: BUN/Creatinine Ratio 11.3 (8-20); EGFR African American 85.8 (>60); EGFR Non-African American 70.9 (>60); Potassium 3.6 mmol/L (3.5-5.0)
[2019-01-26 08:44] LABS: Urine Appearance Clear; Urine Bilirubin Negative (Negative); Urine Blood Negative (Negative); Urine Color Straw; Urine Glucose Negative (Negative); Urine Ketones 1+ (Negative); Urine Nitrite Negative (Negative); Urine Protein Negative (Negative); Urine Specific Gravity 1.009 (1.010-1.030); Urine Urobilinogen Negative (Negative)
[2019-01-26] MEDS: Fluticasone NASAL SPRAY 50MCG* 16 gm SPRAY BTL BOTH NARES SCH ×2 (10:29→19:54)
[2019-01-26] MEDS ORDERED: Butalb/Acetamin/Caff TAB* 1 TAB PO ONE (10:42)
[2019-01-26] MEDS ORDERED: Scopolamine 1.5 mg* PATCH TRANSDERM SCH (11:00)
[2019-01-26] MEDS: Hydroxychloroquine TAB* 200 MG PO SCH ×2 (11:21→19:53)
[2019-01-26] MEDS: Pregabalin CAP(*) 300 MG PO SCH (11:21)
[2019-01-26] MEDS: NS 0.9% 1000 ML** 1,000 ML IV SCH ×2 (11:31→22:42)
--- NOTE | 2019-01-26 17:21 | PN ---
Subjective Date of Service: 01/26/19 Interval History: VS: WNL Labs: Macrocytic anemia- trending up Pt continues to c/o mancia, which is relieved with fioricet. She denies nausea, but has scop patch in place, which she believes is relieving nausea. She denies abd pain, vomiting since admission. She denies hematemesis, hematochezzia, melena. She has h/o GIB with AVM requiring cautery x3. Objective Active Medications: Acetaminophen (Tylenol Tab*) 650 mg PO Q4H PRN PRN Reason: FEVER/PAIN Last Admin: 01/26/19 01:43 Dose: 650 mg Bupropion HCl (Wellbutrin Tab*) 75 mg PO BEDTIME [facility] Last Admin: 01/25/19 21:59 Dose: 75 mg Fluticasone Propionate (Flonase Nasal Sat[place]ia 50mcg*) 1 spray BOTH NARES BID [facility] Last Admin: 01/26/19 10:29 Dose: 1 spray Hydroxychloroquine Sulfate (Plaquenil Tab*) 200 mg PO BID [facility] Last Admin: 01/26/19 11:21 Dose: Not Given Sodium Chloride (Ns 0.9% 1000 Ml) 1,000 mls @ 100 mls/hr IV PER RATE [facility] Last Admin: 01/26/19 11:31 Dose: 100 mls/hr Ondansetron HCl (Zofran Inj*) 4 mg IV Q6H PRN PRN Reason: NAUSEA/VOMITING Last Admin: 01/26/19 06:52 Dose: 4 mg Pharmacy Profile Note (Scopolamine Patch Remove*) 1 note PATCH OFF Q72H [facility] Pregabalin (Lyrica Cap(*)) 300 mg PO DAILY [facility] Last Admin: 01/26/19 11:21 Dose: Not Given Scopolamine (Transderm-Scop 1.5 Mg Patch*) 1 patch TRANSDERM Q72H [facility] Last Admin: 01/26/19 11:30 Dose: 1 patch Vital Signs - 8 hr 01/26/19 01/26/19 11:30 14:16 Respiratory 18 18 Rate Oxygen Devices in Use Now: None Appearance: Pt is in no acute distress; she is laying in bed with HOB elevated. She is in no acute distress. Eyes: No Scleral Icterus, PERRLA Ears/Nose/Mouth/Throat: NL Teeth, Lips, Gums, Clear Oropharnyx, Mucous Membranes Moist Neck: NL Appearance and Movements; NL JVP, Trachea Midline Respiratory: Symmetrical Chest Expansion and Respiratory Effort, Clear to Auscultation Cardiovascular: NL Sounds; No Murmurs; No JVD, RRR, No Edema Abdominal: NL Sounds; No Tenderness; No Distention, No Hepatosplenomegaly Extremities: No Edema, No Clubbing, Cyanosis Neurological: Alert and Oriented x 3 Result Diagrams: 01/26/19 06:08 01/26/19 06:08 Assess/Plan/Problems-Billing Assessment: 68yof PMHx GIB with AVM, AF, h/o DVT/PE, Lupus, GERD who presents with mancia, n/v. - Patient Problems (1) GI bleed Comment: -+ FOB test with no c/o melena, hematochezzia -GI, Dr. Delcid consulted. Notes that pt has h/o GAVE which will cause chronic anemia, chronic GI bleeding. Recommends Dr. Voss to see in a.m., as pt was to have capsule endo in past, and was unable. -Zofran, scopalamine prn nausea -PO pantoprazole ordered -CL diet ordered (2) Atrial fibrillation Comment: -Tele shows NSR; RRR on exam -On Elaquis at home; holding at this time in light of ? GI bleeding. Pt concerned about continuing medication -No rate control medications noted on chart (3) Headache Comment: -Fioricet ordered prn headache (4) Lupus Comment: -Continue Plaquenil (5) DVT prophylaxis Comment: -Eliquis on hold -SCDs (6) Full code status Status and Disposition: Observation. Likely d/c in a.m. after Bipin sees patient.
[2019-01-26] MEDS: Butalb/Acetamin/Caff TAB* 1 TAB PO PRN (19:52)
[2019-01-26] MEDS: buPROPion TAB* 75 MG PO SCH (19:53)
--- NOTE | 2019-01-26 21:17 | CONS ---
CC: Dr. Gallo * GASTROENTEROLOGY CONSULT REPORT: DATE OF CONSULT: 01/26/19 PRIMARY CARE PROVIDER: Dr. Gallo. REASON FOR CONSULT: Positive stool occult blood, and nausea with vomiting. HISTORY OF PRESENT ILLNESS: Ms. 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 Per admission H and P, Ms. Mcqueen was in usual state of health until this weekend when she started having nausea and vomiting. Also, reported a decreased appetite for the several proceeding days. Emesis was nonbloody and nonbilious. Last bowel movement was on Thursday and was normal brown. No melena or hematochezia. The patient presented to the [place] [facility] for the nausea/vomiting and was noted to have a guaiac- positive stool. She was transferred to [facility] for GI consultation. Since admission, the patient has remained stable without further vomiting. Her labs have remained stable with a hemoglobin of 9.2 at [place] and repeat Hgb of [address] [facility]. Most recent hemoglobin this morning was 9.8. On interview, Ms. Mcqueen states that the nausea is much improved, although she has not eaten anything recently. She was having some mild abdominal discomfort when she presented to the ER, which now seems to have resolved. Denies any recent diarrhea or constipation. Denies seeing any blood in her stool or emesis. From a GI standpoint, Ms. Mcqueen was seen in October 2018 by Leni Triplett in clinic. Reason for consultation was iron deficiency anemia and need for regular iron infusions. Patient has history of GAVE, which was treated with APC in September of 2017. Colonoscopy was done at that time as well, although the prep was fairly poor. Repeat EGD was performed by Dr. Voss on 11/11/18. Non-bleeding GAVE was noted and treated with APC. Duodenal biopsies were negative for celiac. Recommendation was for a small bowel capsule. The patient was scheduled to have the capsule study in December, although she missed this appointment because she was in the hospital at [place]. She believes that she had retreatment of the GAVE and blood transfusion during that admission. No records available for review. On chart review of available records , the patient's Hgb in September was 7.9. Follow-up Hgb in late October was 7.8. PAST MEDICAL HISTORY: 1. History of GAVE, status post APC treatment on several occasions. 2. Iron deficiency anemia, chronic. 3. Atrial fibrillation. 4. History of DVTs and PEs, on chronic anticoagulation. 5. GERD. 6. History of SLE. PAST SURGICAL HISTORY: Includes right foot surgery, cataract removal, tonsillectomy, and basal cell carcinoma resection from nose. HOME MEDICATIONS: 1. Eliquis 5 mg b.i.d. 2. Folbee 1 tab daily. 3. Lyrica 300 daily. 4. Omeprazole 40 mg b.i.d. 5. Plaquenil 200 mg b.i.d. 6. Flonase. 7. Flexeril 10 mg at bedtime 8. Bupropion 75 mg at bedtime. 9. Tylenol as needed. ALLERGIES: Allergy to OXYCODONE, IBUPROFEN and SULFA. FAMILY HISTORY: Per H and P, no relevant GI or liver disease. SOCIAL HISTORY: Per H and P, the patient is a former smoker and quit in 1985. No alcohol or drug use history. The patient is and lives alone. REVIEW OF SYSTEMS: Complete review of systems notable for chronic shortness of breath, which is unchanged from baseline. ROS negative otherwise except as mentioned in the HPI. PHYSICAL EXAM: Vital Signs: Temp 98.9, heart rate 67, blood pressure 138/54. General: Elderly woman, resting in bed, in no acute distress. HEENT: Mucous membranes are moist. Cardiovascular: Regular rate and rhythm. Lungs: Breathing comfortably. No increased work of breathing. Abdomen: Nontender, nondistended. Neuro: A and O x3. No gross neuro deficits. Skin: Mild paleness. No jaundice. DIAGNOSTIC STUDIES/LAB DATA: Labs reviewed. White count 6.8, hemoglobin 9.2 on initial presentation and now up to 9.8, platelet count normal, MCV low at 78 this morning, INR normal. Comprehensive panel on admission notable only for a low lipase of 10. Urine notable for 1+ ketone. Imaging: No abdominal imaging. Endoscopy: Recent endoscopy report summarized in the HPI. IMPRESSION AND RECOMMENDATIONS: Ms. 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 Ms. Mcqueen is hemodynamically stable. No evidence of overt gastrointestinal bleeding. Mild nausea persists, although her vomiting has stopped. Labs were reviewed and compared to outpatient labs available from late October. Hemoglobin is consistent with prior baseline as per the records available at the time of this note. Additionally, her hemoglobin has remained stable in the 12 hours since she had presented to care. I am not surprised that she has Hemoccult- positive stool given her well documented gastric antral vascular ectasia history. I discussed with the patient that there is no evidence of active bleeding at this point by history or labs. I do not have her most recent blood work or endoscopy reports from her hospitalization at [place] in December; however, her blood counts do seem to be stable from the records I have from October. I do not see an indication at this point for an urgent endoscopy. I would recommend starting clears and advancing diet as tolerated. Prior plan had been for the patient to have an outpatient video capsule endoscopy in the outpatient setting given her chronic iron deficiency anemia despite treatment of her gastric antral vascular ectasia. I will review this plan with Dr. Voss. 1. Continue to monitor CBC every 12-24 hours. 2. Continue home PPI. 3. Start clear diet and advance as tolerated. 4. Please request recent labs and endoscopy report from [place]. The patient reports that she was there in December. Thank you very much for this consult. GI will follow along peripherally to ensure that GI follow-up is coordinated for the patient. [id number]/[facility] #: [id number] [facility] CENTERDiaz
[2019-01-27] MEDS: Ondansetron INJ* 2 MG/ML VIAL IV PRN ×2 (00:06→09:36)
[2019-01-27] MEDS: Butalb/Acetamin/Caff TAB* 1 TAB PO PRN (06:35)
[2019-01-27 06:40] VITALS: BP 159/70
[2019-01-27 07:53] LABS: Hematocrit 28 % (35-47); Hemoglobin 9.3 g/dL (12.0-16.0); Mean Corpuscular HGB Conc 33 g/dL (31-36); Mean Corpuscular Hemoglobin 26 pg (27-31); Mean Corpuscular Volume 78 fL (80-97); Mean Platelet Volume 8.5 fL (7.4-10.4); Platelet Count 283 10^3/uL (150-450); Red Blood Count 3.59 10^6 /uL (3.70-4.87); Red Cell Distribution Width 20 % (10-15); White Blood Count 6.1 10^3/uL (3.5-10.8)
[2019-01-27] MEDS ORDERED: Pantoprazole TAB * 40 MG TAB PO SCH (09:00)
[2019-01-27] MEDS: Pregabalin CAP(*) 300 MG PO SCH (09:35)
[2019-01-27] MEDS: Hydroxychloroquine TAB* 200 MG PO SCH (09:35)
[2019-01-27] MEDS: Fluticasone NASAL SPRAY 50MCG* 16 gm SPRAY BTL BOTH NARES SCH (09:36)
--- NOTE | 2019-01-27 15:19 | PN ---
Progress Note - Progress Note Date of Service: 01/27/19 Note: GI Follow up Patient seen and examined. No further emesis or pain. no black or blood in stool. VSS gen: alert, oriented x3 heent: at/nc, eomi, no jvp cvs: rrr s1s2 resp: cta b/l abd; soft, nt, nd, bs+ ext: no c/c/e a/p 1.) Anemia due to chronic blood loss. H/H stable. c/w outpatient iron infusions. Should follow up with me for capsule. ? if this is all GAVE or if small bowel source contributing 2.) Nausea/emesis: 3 episodes now. No marijuana use. Is well between episodes. Would recommend outpatient gastric emptying study with Dr. Irwin in [place], this may be cyclic vomiting syndrome which would be a more difficult beast to treat. Recommend trying smaller more frequent meals throughtout day and follow up with primary GI. Tano Voss DO Gastroenterology 01/27/19 [id number]
--- NOTE | 2019-01-28 00:40 | DS ---
CC: Dr. Mustafa; Dr. Voss; Dr. Mathis * DISCHARGE SUMMARY: DATE OF ADMISSION: 01/25/19 DATE OF DISCHARGE: 01/27/19 PRIMARY CARE PROVIDER: Dr. Gallo UPHOLSTERY TECH: Dr. Mustafa. RECORD LABEL INTERN: Dr. Voss, Dr. Mathis ATTENDING PHYSICIAN: Dr. Bri Nagy * (dictated by Taylor Gallo, NISH) PRIMARY DIAGNOSES: 1. Nausea, vomiting. 2. Anemia. 3. Positive stool for occult blood. SECONDARY DIAGNOSES: 1. Gastrointestinal bleed with arteriovenous malformation status post arteriovenous malformation cauterization x3. 2. Gastric antral vascular ectasia. 3. Atrial fibrillation. 4. Lupus. 5. Gastroesophageal reflux disease. 6. History of deep venous thrombosis, pulmonary embolism, currently on chronic Eliquis. STUDIES WHILE IN THE HOSPITAL: None. DISCHARGE MEDICATIONS: Home medications 1. Acetaminophen 1300 mg p.o. q. 8 hours p.r.n. pain. 2. Bupropion 75 mg p.o. at bedtime. 3. Folbee tab 1 tab p.o. daily. 4. Cyclobenzaprine 10 mg p.o. at bedtime. 5. Fluticasone nasal spray 50 mcg one spray to both nares b.i.d. 6. Hydroxychloroquine 200 mg p.o. b.i.d. 7. Omeprazole 40 mg p.o. b.i.d. 8. Pregabalin 300 mg p.o. daily. New home medications: Scopolamine 1.5 mg patch transdermal q. 72 hours p.r.n. nausea prescribed. Noted home medications: Apixaban 5 mg p.o. b.i.d. The patient is currently holding this medication and awaiting discussion with her internal affairs commander and primary care provider regarding continued use. She was instructed that she could continue this medication though would like to defer this decision to discussion with her other providers. HISTORY OF PRESENT ILLNESS/HOSPITAL COURSE: Ms. Mcqueen is a 68-year-old female with a past medical history of GI bleed, GAVE, atrial fibrillation on Eliquis who presents to the [place] [facility] with complaints of nausea and vomiting that started days prior. She also noted decreased appetite. In [place] ER, stool was positive for occult blood. The patient was transferred to [facility] for evaluation and GI consultation. She was noted to have low H and H on admission. GI was consulted. Throughout her stay, the patient denies hematochezia, melena despite positive stool occult blood. Gastroenterology was consulted for further recommendations. Throughout her stay , her anemia remained stable between 9.2 and 9.8. She reports that she does have an internal affairs commander who she follows with for anemia and she occasionally requires iron transfusion. She also notes that she follows with Gastroenterology who recommended a capsule scope, which was cancelled due to illness. Gastroenterology recommends followup outpatient for capsule. Regarding nausea and emesis, GI recommend outpatient gastric emptying study with Dr. Mathis, the patient's steam fitter helper, in [place]. They suspect this may be related to cyclic vomiting syndrome. They recommend smaller more frequent meals throughout the day. At the time of discharge, the patient's nausea is controlled with scopolamine patch, which she is discharged with in place. She has had no recent vomiting. She again continues to deny black tarry or bloody stools. She has a history of GAVE, which could contribute to anemia and will be explored with capsule. She denies chest pain, shortness of breath, fever, cough. She does have some mild epigastric discomfort and intermittent slight nausea, again no vomiting. Ms. Mcqueen is stable for discharge. PHYSICAL EXAMINATION: Vital signs are temperature 97.7 oral, heart rate 72, respiratory rate 18, oxygen saturation 99% on room air, blood pressure 159/70. General: Ms. Mcqueen is a well-developed, well-nourished 68-year-old female who is sitting up in bed. She is in no acute distress. She is cooperative and pleasant. She appears somewhat pressured at her inpatient status and is eager to be discharged. Cardiovascular: Regular rate and rhythm with S1, S2 present without murmurs, rubs, clicks or gallops. She is in normal sinus rhythm throughout her stay on telemetry. She has no JVD. Respiratory: Symmetrical chest expansion without use of accessory muscles. Lungs are clear to auscultation bilaterally without rhonchi, wheezes or rubs. Abdomen: Obese. Bowel sounds noted in all quadrants. The abdomen is soft. There is no distention. There is mild epigastric tenderness to palpation without tenderness elsewhere. There is no hepatosplenomegaly. Extremities: Skin is warm and smooth bilaterally without clubbing, cyanosis or edema. Radial and pedal pulses are palpable. Neuro: The patient is awake. She is alert and oriented x3. She is able to move all of her extremities. She has a steady gait without impairment. DISCHARGE PLAN: Ms. Mcqueen will be discharged to home. CONDITION: Fair. ACTIVITY: As tolerated. DIET: Regular. Small, frequent meals. MEDICATIONS: 1. Remove the scopolamine patch that is currently in place on 01/29/19 at 11: 30 a.m. 2. Scopolamine patch x2 prescription sent to pharmacy. 3. You requested to defer decision to restart Eliquis. PLAN: To discuss this with primary care provider, internal affairs commander. EDUCATION: 1. Follow up with Dr. Mustafa. 2. Follow up with Dr. Mathis. 3. Follow up with Dr. Voss. 4. Follow up with Dr. Gallo, all within 4 days. 5. Return to the ER or nearest hospital if symptoms worsen, you experience bright red or dark tarry stools, chest discomfort, shortness of breath, high fevers, chills, night sweats, dizziness, lightheadedness, loss of consciousness , or any other worrisome signs or symptoms. This is a summarized report of a complex medical history and hospital stay. For further details, please see the entire medical record. TIME SPENT: Approximately 35 minutes were spent on this discharge, greater than half that time was spent [id number] with the patient discussing discharge plans and instructions. NISH BACON [id number]/[facility] #: [id number] JESSICA
[2019-01-29] MEDS ORDERED: Scopolamine PATCH Remove* 1 NOTE MISC PATCH OFF SCH (11:00)
== END 2019-01-27 17:40 | disposition home or self-care (01) ==
LOC: ED 17:38 → MED 19:50
PROVIDERS: ADMIT Internal Medicine; ATTEND Internal Medicine
DX: R11.2 Nausea with vomiting, unspecified (principal); D64.9 Anemia, unspecified; K92.1 Melena; K92.2 Gastrointestinal hemorrhage, unspecified; K31.819 Angiodysplasia of stomach and duodenum without bleeding; I48.91 Unspecified atrial fibrillation; M32.9 Systemic lupus erythematosus, unspecified; K21.9 Gastro-esophageal reflux disease without esophagitis; Z86.718 Personal history of other venous thrombosis and embolism; I26.99 Other pulmonary embolism without acute cor pulmonale; Z79.01 Long term (current) use of anticoagulants; Z88.2 Allergy status to sulfonamides; I73.9 Peripheral vascular disease, unspecified; Z87.891 Personal history of nicotine dependence
CPT/HCPCS: 36415; 80048; 80053; 81003; 83605; 83690; 85014; 85018; 85025; 85027; 85610; 86140; 86850; 86900; 86901; 96374; 96375; 96376; 99285; A9270-GY; G0378; J2405